=== PATIENT | female | born 1965 | race Two or more races ===

== ENCOUNTER 2017-08-14 10:20 | Day surgery (SDC) | payer BC ==
[~2017-08-14 10:20] MED LIST: ONDANSETRON 4 MG TAB.RAPDIS ONE
[2017-08-14] MEDS ORDERED: BUPIVACAINE 0.25% 75 MG/30 ML VIAL ONE (12:28)
[2017-08-14] MEDS ORDERED: LIDOCAINE 0.5% HCL 50 ML VIAL ONE (12:28)
[2017-08-14] MEDS ORDERED: BETA ACET/BET NA PHOS MDV 6 MG/ML VIAL ONE (12:28)
[2017-08-14] MEDS ORDERED: IOHEXOL 240MG/ML 50 ML IV ONE (12:29)
[2017-08-14] MEDS ORDERED: MIDAZOLAM HCL 2 MG/2ML VIAL ONE (15:20)
== END 2017-08-14 16:41 | disposition home or self-care (01) ==
LOC: DS 10:20
PROVIDERS: ATTEND Student in an Organized Health Care Education/Training Program
DX: M24.852 Other specific joint derangements of left hip, not elsewhere classified (principal); E66.3 Overweight; I10 Essential (primary) hypertension; Z88.8 Allergy status to other drugs, medicaments and biological substances
CPT/HCPCS: 73020; A6402; J0702; J2250; J2704; J3490; Q0162; Q9966

== ENCOUNTER 2017-12-25 10:09 | Day surgery (SDC) | payer BC ==
[~2017-12-25 10:09] MED LIST changes: +CEFAZOLIN SODIUM/DEXTROSE,ISO 50 ML IV ONE; -ONDANSETRON 4 MG TAB.RAPDIS ONE
[2017-12-25] MEDS ORDERED: MIDAZOLAM HCL 2 MG/2ML VIAL ONE (12:01)
[2017-12-25] MEDS ORDERED: EPINEPHRINE (1:1000) MDV 30 MG/30ML VIAL ONE (12:11)
[2017-12-25] MEDS ORDERED: MORPHINE SULFATE/PF 10 MG/10ML (1MG/ML) AMPUL ONE (13:39)
[2017-12-25] MEDS ORDERED: BUPIVACAINE MPF 0.75% 30 ML VIAL ONE (13:41)
[2017-12-25] MEDS ORDERED: FENTANYL PF 100MCG/2ML AMPUL ONE (13:58)
[2017-12-25] MEDS ORDERED: oxyCODONE/APAP (5/325 MG) 1 UDTAB TABLET ONE (14:22)
[2017-12-25] MEDS ORDERED: HYDROCODONE/APAP 10/325MG 1 EA TABLET ONE (14:34)
[2017-12-25] MEDS ORDERED: HYDROCODONE/APAP 10/325MG 1 EA TABLET PO PRN (15:00)
== END 2017-12-25 15:30 | disposition home or self-care (01) ==
LOC: DS 10:09
PROVIDERS: ATTEND Student in an Organized Health Care Education/Training Program
DX: S73.192A Other sprain of left hip, initial encounter (principal); M67.854 Other specified disorders of tendon, left hip; X58.XXXA Exposure to other specified factors, initial encounter; Y93.89 Activity, other specified; Y92.89 Other specified places as the place of occurrence of the external cause; Y99.8 Other external cause status; I10 Essential (primary) hypertension; J45.909 Unspecified asthma, uncomplicated; E66.3 Overweight; Z88.8 Allergy status to other drugs, medicaments and biological substances; Z79.899 Other long term (current) drug therapy
CPT/HCPCS: 29916; 29999; 36415; 73501; 85240; 86850; 86921; 88304; 88311; A4215; A4217; A4649; A6209; J0171; J0690; J2250; J2274; J3010; J3490 ×2; Z7610; 73020; J1100; J1885; J2704